=== PATIENT | male | born 1945 | race Caucasian/White ===

== ENCOUNTER → 2016-10-13 | Outpatient (CLI) | payer MEDICARE, BC ==
[~2016-10-13] MED LIST: AMLODIPINE BESY10 MG; AMLODIPINE BESY10 MG PO; FLOMAX0.4 MG PO; KEFLEX500 MG PO; LISINOPRIL20 MG PO; NAPROSYN500 MG PO; NORVASC5 MG PO; TRAMADOL HCL50 MG PO
== END | disposition home or self-care (01) ==
LOC: CDC 09:12
DX: Z01.810 Encounter for preprocedural cardiovascular examination (principal)
CPT/HCPCS: 93000

== ENCOUNTER 2016-10-18 08:17 | Day surgery (SDC) | payer OTHER, BC ==
[~2016-10-18] VITALS: Ht 172.7 cm; Wt 81.2 kg
[2016-10-18 08:55] VITALS: BP 132/88
[2016-10-18 08:57] VITALS: BP 132/88
[2016-10-18 14:34] VITALS: BP 147/81
[2016-10-18 16:04] VITALS: BP 116/69
[2016-10-18 16:45] VITALS: BP 135/74
== END 2016-10-18 16:46 | disposition home or self-care (01) ==
LOC: SDC
PROVIDERS: Urology
DX: N20.1 Calculus of ureter (principal); I10 Essential (primary) hypertension; M19.90 Unspecified osteoarthritis, unspecified site; N40.0 Benign prostatic hyperplasia without lower urinary tract symptoms
CPT/HCPCS: 74420; 82365 90; C1769; C1876; J0690; J1100; J1170; J2250; J2405; J3010; J7050